=== PATIENT | male | born 1990 | race Caucasian/White ===

== ENCOUNTER 2017-05-19 17:21 | Emergency (ER) | payer OTHER ==
--- NOTE | 2017-05-19 19:02 | RAD ---
INDICATION: Right hand injury. TECHNIQUE: 2 views of the right hand were obtained. FINDINGS: There is soft tissue swelling in the fifth finger. There is a oblique slightly comminuted fracture of the proximal metaphysis of the proximal phalanx. The fracture fragments are impacted and there is dorsal angulation of the distal fragment relative to the proximal fragment. IMPRESSION: OBLIQUE, COMMINUTED, DISPLACED AND ANGULATED FRACTURE OF THE PROXIMAL PHALANX OF THE FIFTH FINGER.
--- NOTE | 2017-05-19 20:09 | ED ---
Upper Extremity Pain - HPI Summary HPI Summary: 26-year-old male presents with right pinky finger injury today. He states he was at work and someone kicked a kicked ball into his right hand. He states his previous fracture to the MCP at the area 10 years ago. He denies any numbness or tingling. 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 He denies any other injury. He states his pain is a 4 out 10. Hasn't taken anything for pain. - History of Current Complaint Chief Complaint: EDExtremityUpper Stated Complaint: RT HAND INJURY Time Seen by Provider: 05/19/17 19:01 - Allergies/Home Medications Allergies/Adverse Reactions: Allergies Allergy/AdvReac Type Severity Reaction Status Date / Time No Known Allergies Allergy Verified 11/06/14 19:58 PMH/Surg Hx/FS Hx/Imm Hx Endocrine/Hematology History: Denies: Hx Anticoagulant Therapy Respiratory History: Denies: Hx Asthma Infectious Disease History: No Infectious Disease History: Denies: Traveled Outside the [place] in Last 30 Days - Family History Known Family History: Positive: Hypertension - Social History Alcohol Use: Weekly Substance Use Type: Reports: Marijuana Smoking Status (MU): Never Smoked Tobacco Review of Systems Negative: Fever Negative: Shortness Of Breath Positive: Myalgia - right pinky finger injury All Other Systems Reviewed And Are Negative: Yes Physical Exam Triage Information Reviewed: Yes Vital Signs On Initial Exam: Initial Vitals Temp Pulse Resp BP Pulse Ox 98.5 F 68 17 137/73 100 05/19/17 17:42 05/19/17 17:42 05/19/17 17:42 05/19/17 17:42 05/19/17 17:42 Vital Signs Reviewed: Yes Appearance: Positive: Well-Appearing Skin: Positive: Warm, Dry Head/Face: Positive: Normal Head/Face Inspection Eyes: Positive: Normal, Conjunctiva Clear Respiratory/Lung Sounds: Positive: Clear to Auscultation, Breath Sounds Present Cardiovascular: Positive: Normal, RRR Musculoskeletal: Positive: Limited @ - left pinky, Edema Left - left proximal phalanx, Other - Tenderness over proximal phalanx of right pinky, deformity noted to proximal phalanx of right pinky, good pulses, capillary refill less than 2 seconds, sensation grossly intact Neurological: Positive: Normal Psychiatric: Positive: Normal Procedures - Splinting Location: right hand Hand-Made Type: orthoglass Splint: ulnar Pre-Proc Neuro Vasc Exam: normal Post-Proc Neuro Vasc Exam: normal Diagnostics - Vital Signs Vital Signs Temp Pulse Resp BP Pulse Ox 05/19/17 17:42 98.5 F 68 17 137/73 100 - Laboratory Lab Statement: Any lab studies that have been ordered have been reviewed, and results considered in the medical decision making process. - Radiology hand Xray Interpretation: Positive (See Comments) - IMPRESSION: OBLIQUE, COMMINUTED, DISPLACED AND ANGULATED FRACTURE OF THE PROXIMAL PHALANX OF THE FIFTH FINGER. Radiology Interpretation Completed By: Radiologist Course/Dx - Course Course Of Treatment: 26-year-old male presents with right pinky finger injury today. He states he was at work and someone kicked a kicked ball into his right hand. He states his previous fracture to the MCP at the area 10 years ago. He denies any numbness or tingling. 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 He denies any other injury. He states his pain is a 4 out 10. Hasn't taken anything for pain. On exam has ecchymosis and edema to the right proximal phalanx. Neurovascularly intact. X-ray shows displaced fracture there. Injected lidocaine and attempted to reduce area. Placed in ulnar gutter splint. We will have follow-up with orthopedic. Patient understands and agrees with plan. - Diagnoses Differential Diagnosis/HQI/PQRI: Positive: Fracture (Closed), Strain, Sprain Provider Diagnoses: Proximal phalanx fracture of finger Discharge - Discharge Plan Condition: Good Disposition: HOME Prescriptions: oxyCODONE/Acetamin 5/325 MG* [Percocet 5/325 TAB*] 1 tab PO Q6H PRN #12 tab MDD 4 PRN Reason: Pain Patient Education Materials: Finger Fracture (ED) Referrals: No Primary Care Phys,NOPCP [Primary Care Provider] - Fanny Bentley MD [Medical Doctor] - Additional Instructions: Keep splint on area and keep dry Call ortho office tomorrow to set up appointment for follow up Use ibuprofenor tyenlol for pain every 6 hours and use narcotic for breakthrough pain Ice, elevate Return to ED if develop any new or worsening symptoms
[2017-05-19 20:17] VITALS: BP 132/70
== END 2017-05-19 20:16 | disposition home or self-care (01) ==
LOC: ED 17:21
DX: S62.616A Displaced fracture of proximal phalanx of right little finger, initial encounter for closed fracture (principal); W21.09XA Struck by other hit or thrown ball, initial encounter; Y93.6A Activity, physical games generally associated with school recess, summer camp and children; Y92.9 Unspecified place or not applicable
CPT/HCPCS: 99282

== ENCOUNTER 2017-05-27 13:29 | Day surgery (SDC) | payer OTHER ==
[2017-05-27] MEDS ORDERED: ceFAZolin 2 GM PREMIX (*) 2 GM/50 ML BAG IVPB ONE (13:45)
[2017-05-27] MEDS ORDERED: Dexamethasone IV* 4 MG/ML 1 ML (4 MG) ONE (13:45)
[2017-05-27] MEDS ORDERED: Famotidine IV* 10 MG/ML 2 ML (20 mg) ONE (13:45)
[2017-05-27] MEDS ORDERED: Lidocaine 2% PF * 5 ML VIAL ONE (17:31)
[2017-05-27] MEDS ORDERED: Midazolam* 1 MG/ML 2 ML VIAL (2 MG) ONE (17:31)
[2017-05-27] MEDS ORDERED: Propofol* 10 MG/ML 20 ML BTL IV PUSH ONE ×2 (17:31→18:07)
[2017-05-27] MEDS ORDERED: fentaNYL* 50 MCG/ML 2 ML VIAL (100 MCG VIAL) ONE (17:31)
[2017-05-27] MEDS ORDERED: Bupivacaine 0.25% SDV* 30 ML ONE (17:32)
[2017-05-27] MEDS ORDERED: Ketorolac INJ* 30 MG/ML 1 ML VIAL IV PRN (17:43)
[2017-05-27] MEDS ORDERED: Naloxone* 0.4 MG/ML 1 ML VIAL IV PRN (17:43)
[2017-05-27] MEDS ORDERED: PROCHLORPERAZINE INJ 5 MG/ML 2 ML VIAL IV PRN (17:43)
[2017-05-27] MEDS ORDERED: fentaNYL* 50 MCG/ML 2 ML VIAL (100 MCG VIAL) IV PRN (17:43)
[2017-05-27] MEDS ORDERED: oxyCODONE/Acetamin 5/325 MG* TAB PO PRN (17:43)
[2017-05-27] MEDS ORDERED: HYDROcodone/ACETAMIN 5-325 MG* 1 TAB PO PRN (17:43)
[2017-05-27] MEDS ORDERED: Ondansetron INJ* 2 MG/ML VIAL ONE (18:18)
[2017-05-27 18:34] VITALS: BP 112/67
--- NOTE | 2017-05-28 17:54 | OP ---
OPERATIVE REPORT: DATE OF OPERATION: 05/27/17 DATE OF : 89 SURGEON: Олег Snyder MD [employer] HOST/HOSTESS: SHIRLEY Samuel ANESTHESIOLOGIST: Dr. Adames. ANESTHESIA: Local MAC. PRE-OP DIAGNOSIS: Right small finger displaced proximal phalanx shaft fracture. POST-OP DIAGNOSIS: Right small finger displaced proximal phalanx shaft fracture. OPERATIVE PROCEDURE: Closed reduction and percutaneous pinning of right small finger proximal phalanx shaft fracture. INDICATIONS: Gustavo is 26. He fractured the small finger, it was displaced. I talked to him about his options. He wanted to proceed with pinning. ESTIMATED BLOOD LOSS: 2 mL. COMPLICATIONS: None. FINDINGS: As expected. DESCRIPTION OF PROCEDURE: Gustavo was seen in the preoperative holding area. The correct side, site, and procedure were identified. We came back to the operating room. The arm was cleaned and prepped and draped in the usual fashion. We had a time-out. I performed a digital block with 0.25% plain Marcaine. I began by closed reducing the fracture. The mini C-arm was brought in. I took a 0.045 K-wire and placed it at the starting point radially. This was introduced to the fracture site. I then closed reduced the fracture again and had my news assistant drive the wire across the fracture. I then placed a second 0.045 K-wire on the ulnar aspect of the finger. This was driven up to the fracture site. I backed my first K-wire up to the fracture site, I adjusted the reduction a little bit and then I passed both wires across the fracture site. Everything was looking good. Both pins exited out dorsally. The fracture was in very nice alignment. The pins were bent and clipped and dressed with Xeroform, 4x4s, sterile Webril and an ulnar gutter splint was applied. He was then woken up and taken to the recovery room in stable condition. Tourniquet was not used. [id number]/[facility] #: [id number] MTDD
--- NOTE | 2017-05-29 11:32 | RAD ---
INDICATION: ORIF RIGHT fifth finger COMPARISON: May 25, 2017 TECHNIQUE: 54 seconds fluoroscopy. FINDINGS: Spot images document to percutaneous fixation pins traversing the proximal metaphyseal diaphyseal fracture of the fifth proximal phalanx with restored gross anatomic alignment. IMPRESSION: Procedural fluoroscopy. CPT II Codes: 6045F
== END 2017-05-27 18:55 | disposition home or self-care (01) ==
LOC: OREAST 13:29
PROVIDERS: ATTEND Orthopaedic Surgery Hand Surgery
DX: S62.616A Displaced fracture of proximal phalanx of right little finger, initial encounter for closed fracture (principal); W21.09XA Struck by other hit or thrown ball, initial encounter; Y93.6A Activity, physical games generally associated with school recess, summer camp and children; Y92.328 Other athletic field as the place of occurrence of the external cause; Y99.0 Civilian activity done for income or pay
CPT/HCPCS: 76000; C1776; J0690; J1100; J2250; J2405; J2704; J3010